=== PATIENT | male | born 1950 | race Caucasian/White ===

== ENCOUNTER 2016-07-28 19:42 | Inpatient (IN) | payer MEDICARE ==
[~2016-07-28] VITALS: Ht 180.3 cm; Wt 118.0 kg
[2016-07-28] MEDS ORDERED: SODIUM CHLORIDE 0.9% 1,000 ML IV ONE ×2 (20:16→22:38)
[2016-07-28] MEDS ORDERED: SITA100T PO (20:23)
[2016-07-28] MEDS ORDERED: ATOR20TA9 PO (20:23)
[2016-07-28] MEDS ORDERED: ZOLP10TA5 PO (20:23)
[2016-07-28] MEDS ORDERED: GABA600T2 PO (20:23)
[2016-07-28] MEDS ORDERED: METF10002 PO (20:23)
[2016-07-28] MEDS ORDERED: ASPI-515 PO (20:23)
[2016-07-28] MEDS ORDERED: GLIP5TAB22 PO (20:23)
[2016-07-28] MEDS ORDERED: LISI2.5T PO (20:23)
[2016-07-28] MEDS ORDERED: HYDR-3241 PO (20:23)
[2016-07-28] MEDS ORDERED: SODIUM CHLORIDE FLUSH 10ML SYR IVF ONE (20:30)
[2016-07-28] MEDS ORDERED: ACETAMINOPHEN 500 MG TABLET ONE (20:30)
[2016-07-28] MEDS ORDERED: SODIUM CHLORIDE 0.9% 1,000ML IVBOLUS ONE ×2 (20:30→21:30)
[2016-07-28] MEDS ORDERED: ACETAMINOPHEN 500 MG TABLET PO ONE (20:30)
[2016-07-28] MEDS ORDERED: ONDANSETRON 2MG/ML, 2ML IVPush ONE (20:30)
[2016-07-28] MEDS ORDERED: ONDANSETRON 2MG/ML, 2ML ONE (20:30)
[2016-07-28 21:09] LABS: ASPARTATE AMINO TRANSFERASE 21 U/L (15-37); BLOOD UREA NITROGEN 19 mg/dL (7-18)
[2016-07-28] MEDS ORDERED: IBUPROFEN 200 MG TABLET ONE (21:45)
[2016-07-28] MEDS ORDERED: [UNRECOGNIZED DRUG - OTHER] IVPB ONE (22:00)
[2016-07-28] MEDS ORDERED: IBUPROFEN 200 MG TABLET PO ONE (22:00)
[2016-07-28] MEDS ORDERED: PIPERACILLIN/TAZO/PMX 3.375GM 50 ML ONE (22:07)
[2016-07-28] MEDS ORDERED: SODIUM CHLORIDE FLUSH 10ML SYR IVF PRN (23:00)
[2016-07-28] MEDS ORDERED: ONDANSETRON 2MG/ML, 2ML IVP PRN (23:30)
[2016-07-28] MEDS ORDERED: CEFTRIAXONE PMX 1GM/50ML 50 ML IV SCH (23:30)
[2016-07-28] MEDS ORDERED: ACETAMINOPHEN 325 MG TABLET PO PRN (23:30)
[2016-07-28] MEDS ORDERED: BISACODYL 10 MG SUPP PR PRN (23:30)
[2016-07-28] MEDS ORDERED: POLYETHYLENE GLYCOL 17 GM PACKET PO PRN (23:30)
[2016-07-29 01:14] VITALS: BP 106/67
[2016-07-29 01:55] VITALS: BP 94/56
[2016-07-29] MEDS: GABAPENTIN 300 MG CAPSULE PO SCH ×6 (02:01→20:22)
[2016-07-29] MEDS: ATORVASTATIN 20 MG TABLET PO SCH ×2 (02:01→20:22)
[2016-07-29] MEDS: HEPARIN 5,000 UNITS/ML, 1ML SQ SCH ×3 (02:02→18:00)
[2016-07-29] MEDS: SODIUM CHLORIDE 0.9% 1,000 ML IV SCH ×4 (02:21→23:15)
[2016-07-29] MEDS ORDERED: LATA2.5D3 EACHEYE (02:39)
[2016-07-29] MEDS: metFORMIN 500 MG TABLET PO SCH ×3 (03:41→20:26)
[2016-07-29 05:50] VITALS: BP 133/73
[2016-07-29 06:43] VITALS: BP 115/66
[2016-07-29 08:39] LABS: BLOOD UREA NITROGEN 20 mg/dL (7-18)
[2016-07-29 08:42] LABS: DIFF TOTAL CELLS COUNTED 100 CELL DIFF
[2016-07-29 08:43] LABS: ASPARTATE AMINO TRANSFERASE 17 U/L (15-37)
[2016-07-29] MEDS: SENNA/DOCUSATE TABLET PO SCH (08:48)
[2016-07-29] MEDS: SITAGLIPTIN 100MG TABLET PO SCH (08:48)
[2016-07-29] MEDS: GLIPizide ER 5 MG TABLET PO SCH (08:48)
[2016-07-29] MEDS: ASPIRIN 81 MG TABLET EC PO SCH (08:49)
[2016-07-29] MEDS ORDERED: LOPERAMIDE 2 MG CAPSULE PO PRN (09:30)
[2016-07-29 09:39] LABS: VERIFY COUNTS? YES
[2016-07-29 09:42] LABS: ANISOCYTOSIS 1+; LARGE PLATELETS 1+
[2016-07-29 14:25] VITALS: BP 156/69
[2016-07-29] MEDS: INSULIN ASPART 100 UNITS/ML, PEN SQ-INSULIN SCH ×2 (16:30→20:22)
[2016-07-29 19:03] VITALS: BP 159/68
[2016-07-29] MEDS: PIPERACILLIN/TAZO/PMX 3.375GM 50 ML IV SCH (20:22)
[2016-07-30 00:29] VITALS: BP 162/72
[2016-07-30] MEDS: PIPERACILLIN/TAZO/PMX 3.375GM 50 ML IV SCH ×3 (04:00→21:05)
[2016-07-30 05:00] LABS: BLOOD UREA NITROGEN 17 mg/dL (7-18)
[2016-07-30] MEDS: HEPARIN 5,000 UNITS/ML, 1ML SQ SCH ×3 (05:17→21:05)
[2016-07-30] MEDS: GABAPENTIN 300 MG CAPSULE PO SCH ×5 (05:17→21:06)
[2016-07-30] MEDS: SODIUM CHLORIDE 0.9% 1,000 ML IV SCH ×3 (06:19→23:20)
[2016-07-30] MEDS: INSULIN ASPART 100 UNITS/ML, PEN SQ-INSULIN SCH (08:02)
[2016-07-30] MEDS: LOPERAMIDE 2 MG CAPSULE PO PRN (08:24)
[2016-07-30 08:33] VITALS: BP 159/75
[2016-07-30] MEDS: SENNA/DOCUSATE TABLET PO SCH (09:00)
[2016-07-30] MEDS: metFORMIN 500 MG TABLET PO SCH ×2 (09:47→21:05)
[2016-07-30] MEDS: ASPIRIN 81 MG TABLET EC PO SCH (09:48)
[2016-07-30] MEDS: GLIPizide ER 5 MG TABLET PO SCH (09:49)
[2016-07-30] MEDS: SITAGLIPTIN 100MG TABLET PO SCH (09:49)
[2016-07-30 12:37] VITALS: BP 106/65
[2016-07-30 18:49] VITALS: BP 118/72
[2016-07-30] MEDS: ATORVASTATIN 20 MG TABLET PO SCH (21:05)
[2016-07-31 02:08] VITALS: BP 109/65
[2016-07-31] MEDS: PIPERACILLIN/TAZO/PMX 3.375GM 50 ML IV SCH ×3 (04:16→20:55)
[2016-07-31] MEDS: HEPARIN 5,000 UNITS/ML, 1ML SQ SCH ×3 (05:01→20:56)
[2016-07-31] MEDS: GABAPENTIN 300 MG CAPSULE PO SCH ×5 (05:01→20:56)
[2016-07-31] MEDS: LOPERAMIDE 2 MG CAPSULE PO PRN (05:01)
[2016-07-31 05:28] LABS: BLOOD UREA NITROGEN 16 mg/dL (7-18)
[2016-07-31] MEDS: SODIUM CHLORIDE 0.9% 1,000 ML IV SCH ×3 (06:34→20:55)
[2016-07-31 07:36] VITALS: BP 123/72
[2016-07-31] MEDS: SENNA/DOCUSATE TABLET PO SCH (08:59)
[2016-07-31] MEDS ORDERED: MORPHINE SULFATE 4 MG/ML, 1ML IVPush PRN (09:30)
[2016-07-31] MEDS: GLIPizide ER 5 MG TABLET PO SCH (10:38)
[2016-07-31] MEDS: ASPIRIN 81 MG TABLET EC PO SCH (10:38)
[2016-07-31] MEDS: SITAGLIPTIN 100MG TABLET PO SCH (10:39)
[2016-07-31] MEDS: metFORMIN 500 MG TABLET PO SCH ×2 (10:39→20:55)
[2016-07-31 12:49] VITALS: BP 136/77
[2016-07-31] MEDS ORDERED: ZOLPIDEM 5MG TABLET PO PRN (19:30)
[2016-07-31 20:11] VITALS: BP 150/75
[2016-07-31] MEDS: ATORVASTATIN 20 MG TABLET PO SCH (20:55)
[2016-08-01 02:42] VITALS: BP 113/64
[2016-08-01] MEDS: PIPERACILLIN/TAZO/PMX 3.375GM 50 ML IV SCH ×2 (04:07→11:59)
[2016-08-01] MEDS: SODIUM CHLORIDE 0.9% 1,000 ML IV SCH ×2 (04:07→10:32)
[2016-08-01] MEDS: HEPARIN 5,000 UNITS/ML, 1ML SQ SCH ×2 (05:30→11:59)
[2016-08-01] MEDS: GABAPENTIN 300 MG CAPSULE PO SCH ×3 (05:30→14:20)
[2016-08-01 06:55] VITALS: BP 119/47
[2016-08-01] MEDS: metFORMIN 500 MG TABLET PO SCH (08:12)
[2016-08-01] MEDS: SITAGLIPTIN 100MG TABLET PO SCH (08:12)
[2016-08-01] MEDS: GLIPizide ER 5 MG TABLET PO SCH (08:12)
[2016-08-01] MEDS: ASPIRIN 81 MG TABLET EC PO SCH (08:12)
[2016-08-01] MEDS: SENNA/DOCUSATE TABLET PO SCH (08:12)
[2016-08-01 12:35] VITALS: BP 131/77
[2016-08-01] MEDS ORDERED: AMOX1TAB64 PO (13:58)
== END 2016-08-01 15:30 | disposition home or self-care (01) | DRG 871 ==
LOC: ED 20:39 → EDIP 22:57 → 4EST 07-29 00:20
PROVIDERS: ATTEND Family Medicine
DX: A41.9 Sepsis, unspecified organism (principal); R65.21 Severe sepsis with septic shock; N39.0 Urinary tract infection, site not specified; E11.9 Type 2 diabetes mellitus without complications; E78.5 Hyperlipidemia, unspecified; I10 Essential (primary) hypertension; E66.9 Obesity, unspecified; R19.7 Diarrhea, unspecified; I25.10 Atherosclerotic heart disease of native coronary artery without angina pectoris; I25.2 Old myocardial infarction; Z81.8 Family history of other mental and behavioral disorders; Z85.51 Personal history of malignant neoplasm of bladder; Z87.891 Personal history of nicotine dependence; Z95.1 Presence of aortocoronary bypass graft; Z90.89 Acquired absence of other organs; Z68.36 Body mass index [BMI] 36.0-36.9, adult; Z82.3 Family history of stroke; Z79.82 Long term (current) use of aspirin; Z79.84 Long term (current) use of oral hypoglycemic drugs; Z79.899 Other long term (current) drug therapy
CPT/HCPCS: 36415; 71010; 74022; 80048; 80053; 81001; 82962; 83036; 83605; 83735; 84145; 84153; 84550; 85025; 87040; 87086; 87147; 87324; 93005; 96361; 96365; 96375; J0696; J1644; J2405; J2543; J7030

== ENCOUNTER 2016-08-08 21:52 | Emergency (ER) | payer MEDICARE ==
[~2016-08-08] VITALS: Ht 180.3 cm; Wt 110.0 kg
[~2016-08-08 21:52] MED LIST: AMOX1TAB64 PO; ASPI-515 PO; ATOR20TA9 PO; GABA600T2 PO; GLIP5TAB22 PO; HYDR-3241 PO; LATA2.5D3 EACHEYE; LISI2.5T PO; METF10002 PO; SITA100T PO; ZOLP10TA5 PO
[2016-08-08 22:26] LABS: ASPARTATE AMINO TRANSFERASE 40 U/L (15-37); BLOOD UREA NITROGEN 17 mg/dL (7-18)
[2016-08-08 22:33] LABS: IS PT STATUS REG ER OR PRE ER? YES
[2016-08-08 23:23] VITALS: BP 185/64
== END 2016-08-08 23:58 | disposition home or self-care (01) ==
LOC: ED 22:40
DX: R10.13 Epigastric pain (principal); R11.0 Nausea; I10 Essential (primary) hypertension; E78.5 Hyperlipidemia, unspecified; E11.9 Type 2 diabetes mellitus without complications; Z87.891 Personal history of nicotine dependence; Z95.1 Presence of aortocoronary bypass graft
CPT/HCPCS: 36415; 71010; 80053; 81003; 83690; 84484; 85025; 93005; 99285

== ENCOUNTER 2016-08-15 15:20 | Inpatient (IN) | payer MEDICARE ==
[~2016-08-15] VITALS: Ht 180.3 cm; Wt 100.8 kg
[2016-08-15] MEDS ORDERED: GLIP5TAB10 PO (16:01)
[2016-08-15] MEDS ORDERED: ONDANSETRON 2MG/ML, 2ML IVPush ONE (16:30)
[2016-08-15] MEDS ORDERED: METOPROLOL 1 MG/ML, 5ML IVPush PRN (16:30)
[2016-08-15] MEDS ORDERED: ONDANSETRON 2MG/ML, 2ML ONE (16:35)
[2016-08-15] MEDS ORDERED: NITROGLYCERIN SINGLE TAB 0.4 MG SL ONE (16:35)
[2016-08-15] MEDS: NITROGLYCERIN SINGLE TAB 0.4 MG SL PRN ×2 (16:39→16:52)
[2016-08-15 17:01] LABS: ASPARTATE AMINO TRANSFERASE 49 U/L (15-37); BLOOD UREA NITROGEN 21 mg/dL (7-18)
[2016-08-15] MEDS ORDERED: ONDANSETRON 2MG/ML, 2ML IVP PRN (18:30)
[2016-08-15] MEDS ORDERED: ACETAMINOPHEN 325 MG TABLET PO PRN (18:30)
[2016-08-15] MEDS ORDERED: POLYETHYLENE GLYCOL 17 GM PACKET PO PRN (18:30)
[2016-08-15] MEDS ORDERED: BISACODYL 10 MG SUPP PR PRN (18:30)
[2016-08-15] MEDS ORDERED: MORPHINE SULFATE 4 MG/ML, 1ML IVPush PRN (18:30)
[2016-08-15 18:40] VITALS: BP 126/76
[2016-08-15 18:45] VITALS: BP 143/79
[2016-08-15] MEDS: SODIUM CHLORIDE FLUSH 10ML SYR IVF SCH (20:12)
[2016-08-15] MEDS: metFORMIN 500 MG TABLET PO SCH (20:12)
[2016-08-15] MEDS: HEPARIN 5,000 UNITS/ML, 1ML SQ SCH (20:12)
[2016-08-15] MEDS: LATANOPROST OPHTH 0.005%, 2.5ML EACHEYE SCH (20:13)
[2016-08-15] MEDS: GABAPENTIN 300 MG CAPSULE PO SCH (20:15)
[2016-08-15] MEDS: ATORVASTATIN 20 MG TABLET PO SCH ×3 (20:15→21:00)
[2016-08-15] MEDS: ZOLPIDEM 10MG TABLET PO SCH (21:51)
[2016-08-15] MEDS: NITROGLYCERIN 0.4 MG BOTTLE (25 TABS) SL PRN ×2 (23:44→23:49)
[2016-08-15 23:46] VITALS: BP 124/76
[2016-08-15 23:48] LABS: IS PT STATUS REG ER OR PRE ER? NO
[2016-08-15 23:51] VITALS: BP 130/79
[2016-08-15 23:55] VITALS: BP 126/75
[2016-08-16 02:28] VITALS: BP 125/77
[2016-08-16] MEDS: HEPARIN 5,000 UNITS/ML, 1ML SQ SCH ×3 (04:51→20:06)
[2016-08-16] MEDS: GABAPENTIN 300 MG CAPSULE PO SCH ×4 (04:52→20:05)
[2016-08-16 06:54] LABS: BLOOD UREA NITROGEN 22 mg/dL (7-18)
[2016-08-16 07:00] LABS: ASPARTATE AMINO TRANSFERASE 33 U/L (15-37)
[2016-08-16 07:01] LABS: IS PT STATUS REG ER OR PRE ER? NO
[2016-08-16 08:33] VITALS: BP 108/72
[2016-08-16] MEDS: metFORMIN 500 MG TABLET PO SCH ×2 (08:36→21:24)
[2016-08-16] MEDS: SODIUM CHLORIDE FLUSH 10ML SYR IVF SCH ×2 (08:36→20:06)
[2016-08-16] MEDS: ASPIRIN 81 MG TABLET EC PO SCH (08:37)
[2016-08-16] MEDS: SENNA/DOCUSATE TABLET PO SCH (08:37)
[2016-08-16] MEDS: SITAGLIPTIN 50MG TABLET PO SCH (08:38)
[2016-08-16] MEDS: LISINOPRIL 5 MG TABLET PO SCH (08:38)
[2016-08-16] MEDS ORDERED: SITAGLIPTIN 100MG TABLET PO SCH (09:00)
[2016-08-16] MEDS ORDERED: REGADENOSON 0.4 MG/5 ML SYRINGE ONE (10:59)
[2016-08-16 12:45] VITALS: BP 108/72
[2016-08-16] MEDS ORDERED: MAALOX/HYOSCYAMINE/LIDOCAINE 45 ML BOTTLE PO ONE (15:30)
[2016-08-16] MEDS ORDERED: KETOROLAC 30 MG/1 ML IVPush PRN (15:30)
[2016-08-16 20:00] VITALS: BP 113/73
[2016-08-16] MEDS: ATORVASTATIN 20 MG TABLET PO SCH (20:05)
[2016-08-16] MEDS: PANTOPROZOLE 40MG TABLET PO SCH (20:05)
[2016-08-16] MEDS: LATANOPROST OPHTH 0.005%, 2.5ML EACHEYE SCH (21:00)
[2016-08-16] MEDS: ZOLPIDEM 10MG TABLET PO SCH (22:29)
[2016-08-17 01:00] VITALS: BP 117/66
[2016-08-17] MEDS: HEPARIN 5,000 UNITS/ML, 1ML SQ SCH (05:00)
[2016-08-17] MEDS: GABAPENTIN 300 MG CAPSULE PO SCH (05:28)
[2016-08-17] MEDS ORDERED: OMEP-110 PO (07:38)
[2016-08-17 07:40] VITALS: BP 106/72
[2016-08-17] MEDS: SENNA/DOCUSATE TABLET PO SCH (07:51)
[2016-08-17] MEDS: SITAGLIPTIN 50MG TABLET PO SCH (07:51)
[2016-08-17] MEDS: SODIUM CHLORIDE FLUSH 10ML SYR IVF SCH (07:52)
[2016-08-17] MEDS: ASPIRIN 81 MG TABLET EC PO SCH (07:52)
[2016-08-17] MEDS: LISINOPRIL 5 MG TABLET PO SCH (07:52)
[2016-08-17] MEDS: metFORMIN 500 MG TABLET PO SCH (07:52)
[2016-08-17] MEDS: PANTOPROZOLE 40MG TABLET PO SCH (07:52)
== END 2016-08-17 09:50 | disposition home or self-care (01) | DRG 392 ==
LOC: ED 16:35 → EDIP 17:22 → 5SO 18:04 → DCLOUNGE 08-17 09:45
PROVIDERS: ADMIT Internal Medicine; ATTEND Internal Medicine
DX: K21.9 Gastro-esophageal reflux disease without esophagitis (principal); E44.1 Mild protein-calorie malnutrition; E87.1 Hypo-osmolality and hyponatremia; R07.9 Chest pain, unspecified; D64.9 Anemia, unspecified; E11.9 Type 2 diabetes mellitus without complications; E66.9 Obesity, unspecified; E78.5 Hyperlipidemia, unspecified; I10 Essential (primary) hypertension; I25.10 Atherosclerotic heart disease of native coronary artery without angina pectoris; I25.2 Old myocardial infarction; Z79.899 Other long term (current) drug therapy; Z68.31 Body mass index [BMI] 31.0-31.9, adult; Z81.8 Family history of other mental and behavioral disorders; Z82.3 Family history of stroke; Z85.51 Personal history of malignant neoplasm of bladder; Z87.891 Personal history of nicotine dependence; Z95.1 Presence of aortocoronary bypass graft; E11.65 Type 2 diabetes mellitus with hyperglycemia
CPT/HCPCS: 36415; 71010; 78452; 80053; 82962; 83036; 83690; 84439; 84443; 84484; 85025; 93005; 93017; 96374; J1644; J2405; J2785; A9502; C9898

== ENCOUNTER 2016-08-30 13:04 | Emergency (ER) | payer MEDICARE ==
[~2016-08-30] VITALS: Ht 180.3 cm; Wt 103.1 kg
[~2016-08-30 13:04] MED LIST changes: +GLIP5TAB10 PO; +OMEP-110 PO
[2016-08-30] MEDS ORDERED: SODIUM CHLORIDE 0.9% 1,000ML IVBOLUS ONE (14:30)
[2016-08-30] MEDS ORDERED: SODIUM CHLORIDE FLUSH 10ML SYR IVF ONE (14:30)
[2016-08-30] MEDS ORDERED: ONDANSETRON 2MG/ML, 2ML IVPush ONE (14:30)
[2016-08-30] MEDS ORDERED: FAMOTIDINE 20 MG/2 ML IVP ONE (14:30)
[2016-08-30] MEDS ORDERED: ONDANSETRON 2MG/ML, 2ML ONE (14:34)
[2016-08-30] MEDS ORDERED: FAMOTIDINE 20 MG/2 ML ONE (14:35)
[2016-08-30 15:35] LABS: ASPARTATE AMINO TRANSFERASE 53 U/L (15-37); BLOOD UREA NITROGEN 23 mg/dL (7-18)
[2016-08-30 15:59] VITALS: BP 99/57
== END 2016-08-30 16:15 ==
LOC: ED 16:09
DX: A08.11 Acute gastroenteropathy due to Norwalk agent (principal); E11.9 Type 2 diabetes mellitus without complications; E78.5 Hyperlipidemia, unspecified; I11.9 Hypertensive heart disease without heart failure; Z87.891 Personal history of nicotine dependence
CPT/HCPCS: 36415; 80053; 81001; 83690; 85025; 87324; 89055; 96361; 96374; 96375; 99284; J2405; J7030; S0028

== ENCOUNTER 2018-05-08 12:08 | Outpatient (CLI) | payer MEDICARE ==
[~2018-05-08 12:08] MED LIST changes: +ATOR20TA37 PO; -ATOR20TA9 PO; -GABA600T2 PO; +GABA600T7 PO
== END 2018-05-08 23:59 | disposition home or self-care (01) ==
LOC: RAD 12:08
PROVIDERS: ATTEND Family Medicine
DX: M25.532 Pain in left wrist (principal)

== ENCOUNTER → 2018-05-19 | Outpatient (CLI) | payer MEDICARE | END | disposition home or self-care (01) | LOC: CFH 14:16 | PROVIDERS: ATTEND Nurse Practitioner Family | DX: Z12.2 Encounter for screening for malignant neoplasm of respiratory organs (principal); J98.4 Other disorders of lung; I70.0 Atherosclerosis of aorta; R91.8 Other nonspecific abnormal finding of lung field; Z87.891 Personal history of nicotine dependence | CPT/HCPCS: G0297 ==